=== PATIENT | female | born 1950 | race Two or more races ===

== ENCOUNTER 2019-09-29 18:22 | Emergency (ER) | payer MEDICARE ==
[~2019-09-29] VITALS: Ht 167.6 cm; Wt 62.6 kg
--- NOTE | 2019-09-29 18:31 | NUR ---
CAME IN FOR JAW PAIN 04/23 SINCE YESTERDAY WHILE EATING. TO ER BED 9, HOOKED TO MONITOR, PROVIDED W WARM BLANKET, AWAITING MD GARCIA.
--- NOTE | 2019-09-29 18:32 | NUR ---
DR PHOEINX AT BEDSIDE
--- NOTE | 2019-09-29 18:53 | NUR ---
PATIENT REFUSED PERIPHERAL IV INSERTION AND BLOOD DRAW. MADE DR PHOENIX AWARE
--- NOTE | 2019-09-29 19:00 | NUR ---
PATIENT REFUSED EKG, AT BEDSIDE
--- NOTE | 2019-09-29 19:32 | NUR ---
REPORT GIVEN TO CHIDI SERRANO FOR MICHAEL
--- NOTE | 2019-09-29 19:37 | NUR ---
pt back from ct
--- NOTE | 2019-09-29 21:18 | NUR ---
Patient discharged to home in stable condition. Written and verbal after care instructions given. Patient verbalizes understanding of instruction. Pt ambulatory with a steady gait
--- NOTE | 2019-09-29 21:19 | NUR ---
Patient discharged to home in stable condition. Written and verbal after care instructions given. Patient verbalizes understanding of instruction. Pt ambulatory with a steady gait
[2019-09-29 21:20] VITALS: BP 132/75
== END 2019-09-29 21:21 | disposition home or self-care (01) ==
LOC: ER 18:24
DX: M26.622 Arthralgia of left temporomandibular joint (principal)
CPT/HCPCS: 70110-TC; 70486-TC